=== PATIENT | female | born 1975 | race Caucasian/White ===

== ENCOUNTER 2022-12-25 20:01 | Emergency (ER) | payer OTHER ==
[2022-12-25 20:38] LABS: Absolute Neutrophil Ct (ANC) 11.15 x10^3/uL (1.4-6.9); BASOPHIL % 0.3 % (0.0-0.4); Basophil (Absolute #) 0.04 x10^3/uL (0-0.4); Eosinophil % 2.5 % (0.00-5.0); Eosinophil (Absolute #) 0.37 x10^3/uL (0-0.5); Hematocrit 42.6 % (35-47); Hemoglobin 13.7 g/dL (12.0-16.0); IMMATURE GRAN # 0.06 x10^3u/L (0.00-0.03); IMMATURE GRAN % 0.4 % (0.00-0.4); Lymphocyte (Absolute #) 2.39 x10^3/uL (1.0-4.6); Mean Cell Volume 96.2 fL (78-100); Mean Corpuscular Hemoglobin 30.9 pg (26-32); Mean Corpuscular Hgb Concent. 32.2 g/dL (32-36); Mean Platelet Volume 10.8 fL (7.5-11.0); Monocyte (Absolute #) 0.89 x10^3/uL (0.0-1.3); Neutrophil % 74.8 % (36.0-66.0); Platelet Count 285 x10^3/uL (150-450); Red Blood Count 4.43 x10^6/uL (4.1-5.4); Red Cell Distribution Width 12.5 % (11.5-14.0); White Blood Count 14.9 x10^3/uL (4.0-10.5)
[2022-12-25 20:52] LABS: ALBUMIN 3.7 g/dL (3.5-5.0); ALKALINE PHOSPHATASE 79 U/L (38-126); BLOOD UREA NITROGEN 13 mg/dL (7-17); CHLORIDE 103 mmol/L (98-107); Calcium 8.9 mg/dL (8.4-10.2); Carbon Dioxide 30 mmol/L (22-30); Creatinine 1 0.76 mg/dL (0.52-1.04); EST GLOMERULAR FILTRATION RATE > 60.0 ML/MIN; Glucose 100 mg/dL (74-106); Potassium 3.9 mmol/L (3.5-5.1); SGOT/AST 21 U/L (14-36); SGPT/ALT 17 U/L (0-35); SODIUM 139 mmol/L (137-145); Total Protein 6.3 g/dL (6.3-8.2)
--- NOTE | 2022-12-25 21:09 | ERPHSYRPT ---
- History of Present Illness Time Seen by Provider: 12/25/22 20:57 Source: patient Exam Limitations: no limitations Patient Subjective Stated Complaint: I passed out and fell at the [employer] in [place] Triage Nursing Assessment: Pt arrived via EMS. Pt alert and oriented x4, pleasant and cooperative. Pt was at the [employer] in [place] with a friend, having dinner and a leatha. Pt started to "feel funny" and went to the bathroom. Pt then began to feel flushed and thought she might pass out. Pt wanted to go sit in her car. As she went outside, pt fell/passed out hitting her face in the parking lot. Pt has road rash to forehead, nose, top lip, chin and under rt eye. Pt has 1 cm laceration between the upper lip in the center. Pt has slight swelling above right eye. Physician History: Patient is a 47-year-old female presents to the emergency department via EMS for evaluation of syncope. Patient states she was at a [employer] [facility] in [facility]. Patient had dinner and a leatha. Shortly thereafter patient began to feel flushed and warm. Patient felt as though she was going to pass out. Patient walked out of the restaurant into the parking lot towards her car when she had a syncopal episode. Patient fell face first onto the ground. Patient has facial abrasions and a laceration to her upper lip. Patient was alert when EMS arrived. The syncopal episode was not associated with chest pain. No nausea vomiting or diaphoresis. No numbness tingling or weakness. Patient admits to a history of syncopal episodes. Patient had recurrent syncope as a child. It was attributed to "overheating". Patient states her body just would not produce adequate amounts of perspiration to core her body down. Patient is currently ANO x4. Patient has a slight headache. No neck pain. Cervical spine cleared clinically. Symptoms are moderate in intensity. No specific worsening or improving factors. Patient voices no other complaints or concerns at this time. Portions of this note were created with voice recognition technology. There may be grammatical, spelling, punctuation or sound alike errors Timing/Duration: today Severity: moderate Modifying Factors: Improves With: nothing Associated Symptoms: denies symptoms Allergies/Adverse Reactions: levofloxacin [From Levaquin] Allergy (Severe, Verified 02/22/23 20:21) Anaphylactic Reaction moxifloxacin [From Avelox] Allergy (Severe, Verified 12/25/22 20:21) Anaphylactic Reaction aspirin Adverse Reaction (Intermediate, Verified 12/25/22 20:21) Nausea ibuprofen Adverse Reaction (Intermediate, Verified 12/25/22 20:21) Nausea Penicillins Adverse Reaction (Intermediate, Verified 12/25/22 20:21) Nausea Home Medications: Bupropion HCl Xl 150 mg [Wellbutrin XL 150 MG] 1 tab PO DAILY 12/25/22 [History] Levothyroxine Sodium [Levothyroxine] 50 mcg PO DAILY 12/25/22 [History] Loratadine 10 mg [Claritin 10 mg] 1 tab PO DAILY 12/25/22 [History] Losartan/Hydrochlorothiazide [Hyzaar 100-12.5 Tablet] 1 tab PO DAILY 12/25/22 [History] Montelukast Sodium 10 mg [Singulair 10 MG] 1 tab PO DAILY 12/25/22 [History] hydroCHLOROthiazide [Hydrochlorothiazide] 12.5 mg PO DAILY 12/25/22 [History] Hx Tetanus, Diphtheria Vaccination/Date Given: Yes Hx Influenza Vaccination/Date Given: No Hx Pneumococcal Vaccination/Date Given: No Travel Risk - International Travel Have you traveled outside of the country in past 3 weeks: No - Coronavirus Screening Are you exhibiting any of the following symptoms?: No Close contact with a COVID-19 positive Pt in past 14-21 Days: No - Vaccine Status Have you recieved a Covid-19 vaccination: Yes [employer]: [employer] - Vaccination Dates Date of 2cond Vaccination (if applicable): . - Review of Systems Constitutional: No Symptoms, No Fever, No Chills Eyes: No Symptoms Ears, Nose, & Throat: No Symptoms Respiratory: No Symptoms, No Cough, No Dyspnea Cardiac: No Symptoms, No Chest Pain, No Edema, No Syncope Abdominal/Gastrointestinal: No Symptoms, No Abdominal Pain, No Nausea, No Vomiting, No Diarrhea Genitourinary Symptoms: No Symptoms, No Dysuria Musculoskeletal: No Symptoms, No Back Pain, No Neck Pain Skin: No Symptoms, No Rash Neurological: No Symptoms, No Dizziness, No Focal Weakness, No Sensory Changes Psychological: No Symptoms Endocrine: No Symptoms Hematologic/Lymphatic: No Symptoms Immunological/Allergic: No Symptoms All Other Systems: Reviewed and Negative - Past Medical History Pertinent Past Medical History: Yes Neurological History: No Pertinent History ENT History: No Pertinent History Cardiac History: Hypertension Respiratory History: Asthma, Bronchitis, Pneumonia Endocrine Medical History: Hypothyroidism Musculoskeletal History: No Pertinent History GI Medical History: GERD History: No Pertinent History Psycho-Social History: Anxiety, Depression Female Reproductive Disorders: No Pertinent History - Past Surgical History Past Surgical History: Yes Neuro Surgical History: No Pertinent History Cardiac: No Pertinent History Respiratory: No Pertinent History Gastrointestinal: No Pertinent History Genitourinary: No Pertinent History Musculoskeletal: Orthopedic Surgery Female Surgical History: No Pertinent History Other Surgical History: rt rotator cuff. lump removal to rt breast - Social History Smoking Status: Former smoker Exposure to second hand smoke: No Drug Use: marijuana Patient Lives Alone: Yes - Female History Hx Now: No - Nursing Vital Signs Nursing Vital Signs: Initial Vital Signs Temperature 98.0 F 12/25/22 20:02 Pulse Rate 64 12/25/22 20:02 Respiratory Rate 18 12/25/22 20:02 Blood Pressure 125/60 12/25/22 20:02 O2 Sat by Pulse Oximetry 100 12/25/22 20:02 Pain Scale Pain Intensity 7 - Physical Exam General Appearance: no apparent distress, alert Eye Exam: PERRL/EOMI, eyes nml inspection Ears, Nose, Throat Exam: normal ENT inspection, TMs normal, pharynx normal, moist mucous membranes Neck Exam: normal inspection, non-tender, supple, full range of motion Respiratory Exam: normal breath sounds, lungs clear, airway intact, No respiratory distress Cardiovascular Exam: regular rate/rhythm, normal heart sounds, normal peripheral pulses Gastrointestinal/Abdomen Exam: soft, normal bowel sounds, No tenderness, No mass Back Exam: normal inspection, normal range of motion, No CVA tenderness, No vertebral tenderness Extremity Exam: normal inspection, normal range of motion, pelvis stable Neurologic Exam: alert, oriented x 3, cooperative, normal mood/affect, nml cerebellar function, nml station & gait, sensation nml, No motor deficits Skin Exam: normal color, warm, dry, No rash Lymphatic Exam: No adenopathy SpO2 Interpretation: normal SpO2: 100 O2 Delivery: Room Air - Course Nursing assessment & vital signs reviewed: Yes EKG Interpreted by Me: RATE (64), Sinus Rhythm, NORMAL AXIS, NORMAL INTERVALS - CT Exams Head CT Interpretation: Tele-radiologist Report (No comps. Normal head) Maxillofacial Bones CT Interpretation: Tele-radiologist Report (No cobs. Minimal paranasal sinus disease and mild C5-C6 degenerative disc disease otherwise negative facial bones) Ordered Tests: Active Orders 24 hr Category Date Time Status Yacht Hand STAT Care 12/25/22 20:21 Active EKG-ER Only STAT Care 12/25/22 20:20 Active Pulse Oximetry (ED) STAT Care 12/25/22 20:20 Active FACIAL BONES WO CONTRAST [CT] Stat Exams 12/25/22 20:22 Taken HEAD WITHOUT CONTRAST [CT] Stat Exams 12/25/22 20:22 Taken CBC W DIFF Stat Lab 12/25/22 20:36 Completed CMP Stat Lab 12/25/22 20:36 Completed CULTURE,URINE Stat Lab 12/25/22 21:47 Received HCG,QUALITATIVE URINE Stat Lab 12/25/22 21:47 Completed MAGNESIUM Stat Lab 12/25/22 20:36 Completed TROPONIN Q4H Lab 12/25/22 20:36 Completed TROPONIN Q4H Lab 12/26/22 00:30 Ordered TROPONIN Q4H Lab 12/26/22 04:30 Ordered TROPONIN Stat Lab 12/25/22 22:01 Completed UA W/RFX UR CULTURE Stat Lab 12/25/22 21:47 Completed Medication Summary Discontinued Medications Generic Name Dose Route Start Last Admin Trade Name Freq PRN Reason Stop Dose Admin Clindamycin HCl 300 mg 12/25/22 21:55 12/25/22 21:58 Clindamycin Hcl 150 Mg Capsule PO 12/25/22 21:56 300 mg STAT ONE Administration Clindamycin HCl Confirm 12/25/22 21:58 Clindamycin Hcl 150 Mg Capsule Administered 12/25/22 21:59 Dose 300 mg .ROUTE .STK-MED ONE Lab/Rad Data: Laboratory Result Diagrams 12/25/22 20:36 12/25/22 20:36 Laboratory Results 12/25/22 12/25/22 12/25/22 Range/Units 22:01 21:47 21:47 WBC (4.0-10.5) x10^3/uL RBC (4.1-5.4) x10^6/uL Hgb (12.0-16.0) g/dL Hct (35-47) % MCV (78-100) fL MCH (26-32) pg MCHC (32-36) g/dL RDW (11.5-14.0) % Plt Count (150-450) x10^3/uL MPV (7.5-11.0) fL Gran % (36.0-66.0) % Immature Gran % (Auto) (0.00-0.4) % Nucleat RBC Rel Count (0.00-0.1) % Eos # (Auto) (0-0.5) x10^3/uL Immature Gran # (Auto) (0.00-0.03) x10^3u/L Absolute Lymphs (auto) (1.0-4.6) x10^3/uL Absolute Monos (auto) (0.0-1.3) x10^3/uL Absolute Nucleated RBC (0.00-0.01) x10^3u/L Lymphocytes % (24.0-44.0) % Monocytes % (0.0-12.0) % Eosinophils % (0.00-5.0) % Basophils % (0.0-0.4) % Absolute Granulocytes (1.4-6.9) x10^3/uL Basophils # (0-0.4) x10^3/uL Sodium (137-145) mmol/L Potassium (3.5-5.1) mmol/L Chloride (98-107) mmol/L Carbon Dioxide (22-30) mmol/L Anion Gap (5-15) MEQ/L BUN (7-17) mg/dL Creatinine (0.52-1.04) mg/dL Estimated GFR ML/MIN Glucose (74-106) mg/dL Calcium (8.4-10.2) mg/dL Magnesium (1.6-2.3) mg/dL Total Bilirubin (0.2-1.3) mg/dL AST (14-36) U/L ALT (0-35) U/L Alkaline Phosphatase (38-126) U/L Troponin I < 0.012 (0.000-0.034) ng/mL Serum Total Protein (6.3-8.2) g/dL Albumin (3.5-5.0) g/dL Urine Color Yellow (Yellow) Urine Appearance Clear (Clear) Urine pH 6.0 (4.6-8.0) Ur Specific Buras 1.025 (1.005-1.030) Urine Protein Trace A (Negative) Urine Glucose (UA) Negative (Negative) mg/dL Urine Ketones Trace A (Negative) Urine Blood Negative (Negative) Urine Nitrite Negative (Negative) Urine Bilirubin Negative (Negative) Urine Urobilinogen 0.2 (0.2) mg/dL Ur Leukocyte Esterase Moderate A (Negative) U Hyaline Cast (Auto) 26-50 A (0-2) /LPF Urine Microscopic RBC 0-2 (0-5) /HPF Urine Microscopic WBC 21-50 A (0-5) /HPF Ur Epithelial Cells Few (None Seen) /HPF Urine Bacteria None Seen (None Seen) /HPF Urine Culture Reflexed YES (NO) Urine HCG, Qual NEGATIVE (Negative) 12/25/22 12/25/22 12/25/22 Range/Units 20:36 20:36 20:36 WBC 14.9 H (4.0-10.5) x10^3/uL RBC 4.43 (4.1-5.4) x10^6/uL Hgb 13.7 (12.0-16.0) g/dL Hct 42.6 (35-47) % MCV 96.2 (78-100) fL MCH 30.9 (26-32) pg MCHC 32.2 (32-36) g/dL RDW 12.5 (11.5-14.0) % Plt Count 285 (150-450) x10^3/uL MPV 10.8 (7.5-11.0) fL Gran % 74.8 H (36.0-66.0) % Immature Gran % (Auto) 0.4 (0.00-0.4) % Nucleat RBC Rel Count 0.0 (0.00-0.1) % Eos # (Auto) 0.37 (0-0.5) x10^3/uL Immature Gran # (Auto) 0.06 H (0.00-0.03) x10^3u/L Absolute Lymphs (auto) 2.39 (1.0-4.6) x10^3/uL Absolute Monos (auto) 0.89 (0.0-1.3) x10^3/uL Absolute Nucleated RBC 0.00 (0.00-0.01) x10^3u/L Lymphocytes % 16.0 L (24.0-44.0) % Monocytes % 6.0 (0.0-12.0) % Eosinophils % 2.5 (0.00-5.0) % Basophils % 0.3 (0.0-0.4) % Absolute Granulocytes 11.15 H (1.4-6.9) x10^3/uL Basophils # 0.04 (0-0.4) x10^3/uL Sodium 139 (137-145) mmol/L Potassium 3.9 (3.5-5.1) mmol/L Chloride 103 (98-107) mmol/L Carbon Dioxide 30 (22-30) mmol/L Anion Gap 10.0 (5-15) MEQ/L BUN 13 (7-17) mg/dL Creatinine 0.76 (0.52-1.04) mg/dL Estimated GFR > 60.0 ML/MIN Glucose 100 (74-106) mg/dL Calcium 8.9 (8.4-10.2) mg/dL Magnesium 2.0 (1.6-2.3) mg/dL Total Bilirubin 0.40 (0.2-1.3) mg/dL AST 21 (14-36) U/L ALT 17 (0-35) U/L Alkaline Phosphatase 79 (38-126) U/L Troponin I < 0.012 (0.000-0.034) ng/mL Serum Total Protein 6.3 (6.3-8.2) g/dL Albumin 3.7 (3.5-5.0) g/dL Urine Color (Yellow) Urine Appearance (Clear) Urine pH (4.6-8.0) Ur Specific Buras (1.005-1.030) Urine Protein (Negative) Urine Glucose (UA) (Negative) mg/dL Urine Ketones (Negative) Urine Blood (Negative) Urine Nitrite (Negative) Urine Bilirubin (Negative) Urine Urobilinogen (0.2) mg/dL Ur Leukocyte Esterase (Negative) U Hyaline Cast (Auto) (0-2) /LPF Urine Microscopic RBC (0-5) /HPF Urine Microscopic WBC (0-5) /HPF Ur Epithelial Cells (None Seen) /HPF Urine Bacteria (None Seen) /HPF Urine Culture Reflexed (NO) Urine HCG, Qual (Negative) - Progress Progress: improved Progress Note: Patient is a 47-year-old female with history of hypertension presents to our ED for evaluation of syncope. Patient was at a restaurant. Patient had a meal and a leatha. Patient began to feel faint. She walked out to her car and had a syncopal episode. Patient fell face first per bystanders. Patient's presentation is acute. Complexity of problems addressed is moderate. Patient symptoms are acute complicated with a syncopal episode and a facial laceration. Patient has a history of syncope as a child however no significant syncopal episodes as an adult. No critical care time. Physical exam reveals contusion to her nose right periorbital region and face. Patient has a complex laceration to the upper lip vermilion border. Tests ordered include EKG which reveals no rmal sinus rhythm. No ischemic changes. CT head and CT face which are both negative for fractures. CBC CMP showed a mild leukocytosis otherwise negative. Magnesium normal. Initial troponin negative. Urinalysis ordered however results pending. Complexity of data reviewed and analyzed is moderate. Results of testing obtained reviewed and analyzed. Results are used in medical decision-making. Patient was not an independent historian. Most of the history is obtained from EMS as well as patient's friend who observe the situation. No outside documents reviewed. EKG was reviewed by Dr. Saunders. Patient management was discussed with ENT and nurse practitioner at [address] They advised contacting the transfer center to arrange for OMFS management of patient's complex lip laceration. Patient declined pain medication. Risk of complication and/or morbidity/mortality of patient management is minimal. Patient will be transferred to [facility] for OMFS evaluation. Patient will require skilled laceration repair of upper lip. Patient requested to drive herself via personal owned vehicle. Patient's sister and friend are at her bedside and will drive patient to [facility] in [place]. Superficial dressing in applied to laceration. All decisions were made via shared decision making process. Time spent to discharge is approximately 15 minutes. Diagnosis is syncope and collapse, facial laceration facial contusion facial abrasions. Vital stable. Portions of this note were created with voice recognition technology. There may be grammatical, spelling, punctuation or sound alike errors 12/25/22 21:42 12/25/22 21:44 Prophylactic dose of oral clindamycin administered to cover complex upper lip vermilion border laceration. Patient has multiple antibiotic allergies including penicillin and fluoroquinolone. Urinalysis reveals urinary tract infection. A prescription for Macrobid was forwarded to patient's pharmacy. Patient reassessed. She feels well. Patient will drive herself to [facility] to meet with OMFS for repair of her complex upper lip laceration. Portions of this note were created with voice recognition technology. There may be grammatical, spelling, punctuation or sound alike errors 12/25/22 22:46 Counseled pt/family regarding: diagnosis, need for follow-up, rad results - Departure Departure Disposition: Transfer Clinical Impression: Leukocytosis, Syncope and collapse, Lip laceration, Facial abrasion, Nasal contusion, Urinary tract infection Condition: Stable Critical Care Time: No Referrals: HOWARD COLBY [facility] OPERATOR [Primary Care Provider] - Follow up/PCP as directed Additional Instructions: Discharge/Care Plan KULDIP GIMENEZ was seen on 12/25/22 in the Emergency Room. The patient was counseled regarding Diagnosis,Lab results, Imaging studies, need for follow up and when to return to the Emergency Room. Prescriptions given: Discharge Note I have spoken with the patient and/or caregivers. I have explained the patient's condition, diagnosis and treatment plan based on the information available to me at this time. I have answered the patient's and/or caregiver's questions and addressed any concerns. The patient and/or caregivers have as good understanding of the patient's diagnosis, condition and treatment plan as can be expected at this point. The vital signs have been stable. The patient's condition is stable and appropriate for discharge from the emergency department. The patient will pursue further outpatient evaluation with the primary care physician or other designated or consulting physician as outlined in the discharge instructions. The patient and/or caregivers are agreeable to this plan of care and follow-up instructions have been explained in detail. The patient and/or caregivers have received these instruction. The patient/and or caregivers are aware that any significant change in condition or worsening of symptoms should prompt an immediate return to this or the closest emergency department or call 911. Prescriptions: Nitrofurantoin Macro 100 mg [Macrobid 100MG Capsule] 100 mg PO BID 7 Days #14 cap
[2022-12-25] MEDS: CLEOCIN 150 MG CAPSULE PO ONE (21:58)
[2022-12-25] MEDS ORDERED: CLEOCIN 150 MG CAPSULE ONE (21:58)
[2022-12-25 22:14] LABS: ADD URINE CULTURE? YES (NO); Appearance Clear (Clear); Bacteria None Seen /HPF (None Seen); Bilirubin Negative (Negative); Blood Negative (Negative); Epithelial Cells Few /HPF (None Seen); Glucose, Urine Negative (Negative); Hyaline Casts 26-50 /LPF (0-2); Ketones Trace (Negative); Leukocyte Esterase Moderate (Negative); Nitrite Negative (Negative); Protein,Urine Dip Trace (Negative); RBC 0-2 /HPF (0-5); Specific Gravity 1.025 (1.005-1.030); Urobilinogen 0.2 mg/dL (0.2); WBC 21-50 /HPF (0-5)
[2022-12-25 23:03] VITALS: BP 153/95; PULSE 70; O2SAT 98
--- NOTE | 2022-12-26 08:32 | XRAY ---
Indication: Facial trauma following fall. Multiple contiguous axial images obtained through the head without contrast. Comparison: None Normal appearing brain parenchyma, ventricles, and bony calvarium. Mild mucosal thickening right sphenoid and lesser degree right ethmoid sinuses. Mastoid air cells are clear. Impression: Minimal paranasal sinus disease. Normal CT head without contrast exam.
--- NOTE | 2022-12-26 08:34 | XRAY ---
Indication: Facial trauma following fall. Multiple contiguous axial images obtained through the facial bones. Sagittal and coronal reformatted images obtained. Comparison: None A few bilateral dental amalgams produces beam artifact. No acute fracture, suspicious bony lesions, or radiopaque foreign body. Orbits including roof, rowland, and floors intact. Mild mucosal thickening right sphenoid/right ethmoid sinuses and lesser degree both maxillary sinuses. Remaining paranasal sinuses and nasal passages are clear. Visualized cervical spine intact with mild C5-C6 degenerative changes. Small centimeters/subcentimeter cervical lymph nodes bilaterally, none pathologically enlarged. Remaining visualized noncontrasted soft tissues are unremarkable. Impression: Minimal paranasal sinus disease. Remaining CT facial bones negative.
== END 2022-12-25 23:11 | disposition short-term general hospital (02) ==
LOC: ED 20:01
DX: S01.511A Laceration without foreign body of lip, initial encounter (principal); S00.33XA Contusion of nose, initial encounter; S00.11XA Contusion of right eyelid and periocular area, initial encounter; S00.81XA Abrasion of other part of head, initial encounter; W18.39XA Other fall on same level, initial encounter; Y92.481 Parking lot as the place of occurrence of the external cause; R55 Syncope and collapse; N39.0 Urinary tract infection, site not specified; D72.829 Elevated white blood cell count, unspecified; R51.9 Headache, unspecified; I10 Essential (primary) hypertension; Z79.899 Other long term (current) drug therapy
CPT/HCPCS: 36415; 70450; 70486; 80053; 81001; 81025; 83735; 84484; 85025; 87086; 93005; 93041; 94760; 99285; A9270-GY